=== PATIENT | female | born 1955 | race Caucasian/White ===

== ENCOUNTER 2017-04-23 10:18 | Emergency (ER) | payer MEDICARE, SELFPAY ==
[~2017-04-23] VITALS: Ht 162.6 cm; Wt 97.5 kg
[~2017-04-23 10:18] MED LIST: ACETAMINOPHEN500 MG PO; AEROECLIPSE II1 EACH MC; ALBU90OI INH; ALPR1 PO; Bactrim Ds Tab1 EACH PO; CEPH500 PO; CLON1 PO; CODGUAEL PO; Clotrimazole15 GM TOP; DIVA500EC PO; DOXY100 PO; Duoneb 2.5-0.5 M3 ML INH; ERYT1OIN RIGHTEYE; ESCI10 PO; ESCI20 PO; FENO48 PO; GABA100 PO; HYDACE5 PO; IBUP400 PO; IBUP600 PO; Keflex500 MG PO; MIRT15 PO; Neurontin 100100 MG PO; Norco 5-325 Ta1 EACH PO; PRED20 PO; Pedi-Dri 100,0060 GM TOP; Prednisone20 MG PO; RISP1 PO; RXHYDACE PO
[2017-04-23 11:28] LABS: Source, Urine Clean Catch
[2017-04-23 11:32] LABS: Bilirubin, Urine Neg (Neg); Blood, Urine 2+ (Neg); Glucose Qualitative, Urine Neg (Neg); Ketones, Urine 1+ (Neg); Leukocyte Esterase, Urine 3+ (Neg); Nitrite, Urine Neg (Neg); Protein, Urine 1+ (Neg); Specific Gravity, Urine 1.015 (1.003-1.022); Urobilinogen, Urine NORM (Normal)
[2017-04-23 11:51] LABS: Appearance, Urine Hazy (Clear); Color, Urine Yellow (P-Yellow)
[2017-04-23 11:59] LABS: White Blood Cells, Urine 25-50 /hpf (0-5)
[2017-04-23 12:00] LABS: Bacteria Mod /hpf; Mucus Light (0-Heavy); Renal Epithelial Rare /hpf (0-Rare); Squamous Epithelial Cells Mod /hpf (Few); Yeast/Fungi Urine Few /hpf
[2017-04-23 17:12] LABS: U Amphetamine Screen DETECTED; U Barbituate Screen Not Detected; U Benzodiazapine Screen DETECTED; U Buprenorphine Screen Not Detected; U Cannabinoids Screen Not Detected; U Cocaine Screen Not Detected; U Methadone Screen Not Detected; U Methamphetamine Screen DETECTED; U Opiates Screen Not Detected; U Oxycodone Screen Not Detected; U Phencyclidine Screen Not Detected; U Propoxyphene Screen Not Detected
[2017-09-20] MEDS ORDERED: PREG100 (17:23)
[2017-09-20] MEDS ORDERED: BACL10 (17:23)
[2017-09-20] MEDS ORDERED: POTCHL10ER (17:24)
[2017-09-20] MEDS ORDERED: Narcan 0.40.4 MG/ML (17:24)
[2017-09-20] MEDS ORDERED: DIAZ5 (17:24)
[2017-09-20] MEDS ORDERED: ALBU90OI (17:24)
[2017-09-20] MEDS ORDERED: HYDR-86 (17:24)
[2017-09-20] MEDS ORDERED: FURO20 (17:24)
[2017-09-20] MEDS ORDERED: LOPE2C (17:25)
[2017-09-20] MEDS ORDERED: CLON.1 (17:25)
[2017-09-20] MEDS ORDERED: Voltaren100 GM (17:25)
[2017-09-20] MEDS ORDERED: AMLO5 (17:25)
[2017-09-20] MEDS ORDERED: CLOBET30L (17:25)
[2017-09-20] MEDS ORDERED: CENTRUM SILVER1 EAC2 (17:26)
[2017-09-20] MEDS ORDERED: ESCI20 (17:26)
[2017-09-20] MEDS ORDERED: COMPAZINE10 MG PO (19:26)
== END 2017-04-23 12:55 | disposition home or self-care (01) ==
LOC: ER 10:18
PROVIDERS: Emergency Medicine
DX: F45.8 Other somatoform disorders (principal); E78.00 Pure hypercholesterolemia, unspecified; Z88.0 Allergy status to penicillin; Z88.1 Allergy status to other antibiotic agents; Z79.899 Other long term (current) drug therapy; Z87.891 Personal history of nicotine dependence
CPT/HCPCS: 81001; 87086; 99283

== ENCOUNTER 2017-05-02 12:01 | Emergency (ER) | payer MEDICARE, SELFPAY ==
[~2017-05-02] VITALS: Ht 162.6 cm; Wt 104.3 kg
[2017-05-02 12:45] LABS: BASOPHILS ABSOLUTE AUTO 0.07 K/mm3 (0.00-0.23); BASOPHILS PERCENT AUTO 1 % (0-2); EOSINOPHILS ABSOLUTE AUTO 0.19 K/mm3 (0.00-0.68); EOSINOPHILS PERCENT AUTO 2 % (0-6); Hematocrit 43.1 % (33.0-51.0); Hemoglobin 14.3 g/dL (11.5-16.0); IMMATURE GRAN ABSOLUTE AUTO 0.29 K/mm3 (0.00-0.10); IMMATURE GRAN PERCENT AUTO 4 % (0-1); LYMPHOCYTES ABSOLUTE AUTO 3.59 K/mm3 (0.84-5.20); LYMPHOCYTES PERCENT AUTO 45 % (21-46); MONOCYTES ABSOLUTE AUTO 0.85 K/mm3 (0.16-1.47); MONOCYTES PERCENT AUTO 11 % (4-13); Mean Corpuscular HGB 31.1 pg (26.0-34.0); Mean Corpuscular HGB Conc 33.2 g/dL (31.5-36.5); Mean Corpuscular Volume 94 fL (80-100); Mean Platelet Volume 9.3 fL (9.1-12.4); NEUTROPHILS ABSOLUTE AUTO 2.93 K/mm3 (1.96-9.15); NEUTROPHILS PERCENT AUTO 37 % (41-73); NRBC ABSOLUTE 0.02 K/mm3 (0.00-0.02); NRBC Auto 0.3 /100 WBC (0.0-0.2); Platelet Count 197 K/mm3 (150-400); RDW Coefficient Variation 11.8 % (11.7-14.2); White Blood Cell Count 7.92 K/mm3 (4.00-11.30)
[2017-05-02 12:59] LABS: Alanine Aminotransfer (ALT/SGP 38 U/L (12-78); Albumin, Blood 3.2 g/dL (3.4-5.0); Albumin/Globulin Ratio 0.9 (0.8-1.8); Alk Phos 119 U/L (50-136); Anion Gap 7 mmol/L (6-16); Aspartate Aminotrans (AST/SGOT 30 U/L (12-37); Bilirubin, Total 0.2 mg/dL (0.1-1.0); Blood Urea Nitrogen 20 mg/dL (8-24); Bun/Creatinine Ratio 29.7 (12.0-20.0); CO2, Blood 29 mmol/L (21-32); Calcium, Blood 8.7 mg/dL (8.5-10.1); Chloride, Blood 107 mmol/L (98-108); Creatinine, Blood 0.67 mg/dL (0.40-1.00); Globulin, Blood 3.5 g/dL (2.2-4.0); Glomerular Filtration Rate >60 (60-); Glucose, Blood 124 mg/dL (70-99); Potassium, Blood 4.2 mmol/L (3.5-5.5); Sodium, Blood 143 mmol/L (136-145); Total Protein, Blood 6.7 g/dL (6.4-8.2)
[2017-05-02 13:05] LABS: International Normalized Ratio 0.97; Prothrombin Time Results 10.1 Sec (9.7-11.5)
[2017-05-02 14:59] LABS: Source, Urine Clean Catch
[2017-05-02 15:01] LABS: Appearance, Urine Clear (Clear); Bilirubin, Urine Neg (Neg); Blood, Urine Neg (Neg); Color, Urine Yellow (P-Yellow); Glucose Qualitative, Urine Neg (Neg); Ketones, Urine 1+ (Neg); Leukocyte Esterase, Urine 2+ (Neg); Nitrite, Urine Neg (Neg); Protein, Urine 1+ (Neg); Urobilinogen, Urine NORM (Normal)
[2017-05-02 15:14] LABS: Red Blood Cells, Urine Not Seen /hpf (0-2); Squamous Epithelial Cells Many /hpf (Few)
[2017-05-02 15:15] LABS: Bacteria Mod /hpf
[2017-05-02 15:33] LABS: Troponin I <0.015 ng/mL (0.000-0.040)
[2017-05-02] MEDS ORDERED: Bactrim 400-801 EACH PO (16:50)
[2017-09-20] MEDS ORDERED: PREG100 (17:23)
[2017-09-20] MEDS ORDERED: BACL10 (17:23)
[2017-09-20] MEDS ORDERED: FURO20 (17:24)
[2017-09-20] MEDS ORDERED: HYDR-86 (17:24)
[2017-09-20] MEDS ORDERED: Narcan 0.40.4 MG/ML (17:24)
[2017-09-20] MEDS ORDERED: POTCHL10ER (17:24)
[2017-09-20] MEDS ORDERED: DIAZ5 (17:24)
[2017-09-20] MEDS ORDERED: ALBU90OI (17:24)
[2017-09-20] MEDS ORDERED: LOPE2C (17:25)
[2017-09-20] MEDS ORDERED: CLON.1 (17:25)
[2017-09-20] MEDS ORDERED: CLOBET30L (17:25)
[2017-09-20] MEDS ORDERED: Voltaren100 GM (17:25)
[2017-09-20] MEDS ORDERED: AMLO5 (17:25)
[2017-09-20] MEDS ORDERED: ESCI20 (17:26)
[2017-09-20] MEDS ORDERED: CENTRUM SILVER1 EAC2 (17:26)
[2017-09-20] MEDS ORDERED: COMPAZINE10 MG PO (19:26)
== END 2017-05-02 17:29 | disposition home or self-care (01) ==
LOC: ER 12:01
PROVIDERS: Emergency Medicine
DX: S50.11XA Contusion of right forearm, initial encounter (principal); F15.10 Other stimulant abuse, uncomplicated; E78.00 Pure hypercholesterolemia, unspecified; Z87.891 Personal history of nicotine dependence; W19.XXXA Unspecified fall, initial encounter
CPT/HCPCS: 36415; 70450; 80053; 81000; 81001; 84484; 85025; 85610; 85730; 87086; 93005; 93010; 96360; 99284; J7030

== ENCOUNTER → 2017-05-07 | Outpatient (CLI) | payer MEDICARE, OTHER ==
[~2017-05-07] MED LIST changes: +ACET325 PO; +ALBU90OI; +AMLO5; +AMLO5 PO; +Alprazolam2 MG PO; +BACL10; +Bactrim 400-801 EACH PO; +CENTRUM SILVER1 EAC2; +CENTRUM SILVER1 EAC2 PO; +CLIN300 PO; +CLOBET30L; +CLON.1; +CLON.1 PO; +COMPAZINE10 MG PO; +Catapres0.1 MG PO; +Culturelle1 CAP PO; +DIAZ5; +ESCI20; +FURO20; +HYDR-86; +IBUP800 PO; +LOPE2C; +LOPE2C PO; +Narcan 0.40.4 MG/ML; +OXYC5 PO; +POTCHL10ER; +PREG100; +PREG100 PO; +VOLTAREN TOP; +Voltaren100 GM
== END ==
LOC: LAB SRC 07:30
DX: R19.7 Diarrhea, unspecified (principal)
CPT/HCPCS: 87177; 87209

== ENCOUNTER 2017-05-26 20:49 | Inpatient (IN) | payer MEDICARE ==
[~2017-05-26] VITALS: Ht 165.1 cm; Wt 104.5 kg
[~2017-05-26 20:49] MED LIST changes: -ACET325 PO; -ALBU90OI; -AMLO5; -AMLO5 PO; -Alprazolam2 MG PO; -BACL10; -CENTRUM SILVER1 EAC2; -CENTRUM SILVER1 EAC2 PO; -CLIN300 PO; -CLOBET30L; -CLON.1; -CLON.1 PO; -COMPAZINE10 MG PO; -Catapres0.1 MG PO; -Culturelle1 CAP PO; -DIAZ5; -ESCI20; -FURO20; -HYDR-86; -IBUP800 PO; -LOPE2C; -LOPE2C PO; -Narcan 0.40.4 MG/ML; -OXYC5 PO; -POTCHL10ER; -PREG100; -PREG100 PO; -VOLTAREN TOP; -Voltaren100 GM
[2017-05-26 23:08] LABS: BASOPHILS ABSOLUTE AUTO 0.05 K/mm3 (0.00-0.23); BASOPHILS PERCENT AUTO 0 % (0-2); EOSINOPHILS ABSOLUTE AUTO 0.07 K/mm3 (0.00-0.68); EOSINOPHILS PERCENT AUTO 0 % (0-6); Hematocrit 39.6 % (33.0-51.0); Hemoglobin 13.3 g/dL (11.5-16.0); IMMATURE GRAN ABSOLUTE AUTO 0.07 K/mm3 (0.00-0.10); IMMATURE GRAN PERCENT AUTO 0 % (0-1); LYMPHOCYTES ABSOLUTE AUTO 3.04 K/mm3 (0.84-5.20); LYMPHOCYTES PERCENT AUTO 18 % (21-46); MONOCYTES ABSOLUTE AUTO 1.64 K/mm3 (0.16-1.47); MONOCYTES PERCENT AUTO 10 % (4-13); Mean Corpuscular HGB Conc 33.6 g/dL (31.5-36.5); Mean Corpuscular Volume 95 fL (80-100); NEUTROPHILS ABSOLUTE AUTO 12.19 K/mm3 (1.96-9.15); NEUTROPHILS PERCENT AUTO 72 % (41-73); Platelet Count 160 K/mm3 (150-400); RDW Coefficient Variation 12.1 % (11.7-14.2); RDW Standard Deviation 42.3 fL (35.1-46.3); Red Blood Cell Count 4.16 M/mm3 (3.80-5.20); White Blood Cell Count 17.06 K/mm3 (4.00-11.30)
[2017-05-26 23:27] LABS: Alanine Aminotransfer (ALT/SGP 63 U/L (12-78); Albumin, Blood 3.1 g/dL (3.4-5.0); Albumin/Globulin Ratio 0.9 (0.8-1.8); Alk Phos 90 U/L (50-136); Anion Gap 10 mmol/L (6-16); Aspartate Aminotrans (AST/SGOT 39 U/L (12-37); Bilirubin, Total 0.4 mg/dL (0.1-1.0); Blood Urea Nitrogen 16 mg/dL (8-24); Bun/Creatinine Ratio 25.1 (12.0-20.0); CO2, Blood 25 mmol/L (21-32); Calcium, Blood 8.4 mg/dL (8.5-10.1); Chloride, Blood 101 mmol/L (98-108); Creatinine, Blood 0.64 mg/dL (0.40-1.00); Globulin, Blood 3.3 g/dL (2.2-4.0); Glomerular Filtration Rate >60 (60-); Glucose, Blood 129 mg/dL (70-99); Potassium, Blood 3.7 mmol/L (3.5-5.5); Sodium, Blood 136 mmol/L (136-145); Total Protein, Blood 6.4 g/dL (6.4-8.2)
[2017-05-27 01:20] LABS: International Normalized Ratio 1.04; Prothrombin Time Results 10.8 Sec (9.7-11.5)
[2017-05-27 04:45] LABS: BASOPHILS ABSOLUTE AUTO 0.04 K/mm3 (0.00-0.23); BASOPHILS PERCENT AUTO 0 % (0-2); EOSINOPHILS ABSOLUTE AUTO 0.12 K/mm3 (0.00-0.68); EOSINOPHILS PERCENT AUTO 1 % (0-6); Hematocrit 38.3 % (33.0-51.0); Hemoglobin 12.6 g/dL (11.5-16.0); IMMATURE GRAN ABSOLUTE AUTO 0.04 K/mm3 (0.00-0.10); IMMATURE GRAN PERCENT AUTO 0 % (0-1); LYMPHOCYTES ABSOLUTE AUTO 2.05 K/mm3 (0.84-5.20); LYMPHOCYTES PERCENT AUTO 16 % (21-46); MONOCYTES ABSOLUTE AUTO 1.21 K/mm3 (0.16-1.47); MONOCYTES PERCENT AUTO 9 % (4-13); Mean Corpuscular HGB 31.3 pg (26.0-34.0); Mean Corpuscular HGB Conc 32.9 g/dL (31.5-36.5); Mean Corpuscular Volume 95 fL (80-100); Mean Platelet Volume 9.9 fL (9.1-12.4); NEUTROPHILS ABSOLUTE AUTO 9.54 K/mm3 (1.96-9.15); NEUTROPHILS PERCENT AUTO 73 % (41-73); Platelet Count 145 K/mm3 (150-400); RDW Coefficient Variation 12.2 % (11.7-14.2); RDW Standard Deviation 42.6 fL (35.1-46.3); Red Blood Cell Count 4.02 M/mm3 (3.80-5.20)
[2017-05-27 05:05] LABS: Alanine Aminotransfer (ALT/SGP 50 U/L (12-78); Albumin, Blood 2.7 g/dL (3.4-5.0); Albumin/Globulin Ratio 0.9 (0.8-1.8); Alk Phos 84 U/L (50-136); Anion Gap 8 mmol/L (6-16); Aspartate Aminotrans (AST/SGOT 30 U/L (12-37); Bilirubin, Total 0.4 mg/dL (0.1-1.0); Blood Urea Nitrogen 16 mg/dL (8-24); Bun/Creatinine Ratio 21.5 (12.0-20.0); CO2, Blood 29 mmol/L (21-32); Calcium, Blood 7.9 mg/dL (8.5-10.1); Chloride, Blood 103 mmol/L (98-108); Creatinine, Blood 0.74 mg/dL (0.40-1.00); Glomerular Filtration Rate >60 (60-); Glucose, Blood 146 mg/dL (70-99); Potassium, Blood 3.3 mmol/L (3.5-5.5); Sodium, Blood 140 mmol/L (136-145); Total Protein, Blood 5.7 g/dL (6.4-8.2)
[2017-05-27 14:54] LABS: U Amphetamine Screen Not Detected; U Barbituate Screen Not Detected; U Benzodiazapine Screen DETECTED; U Buprenorphine Screen Not Detected; U Cannabinoids Screen Not Detected; U Cocaine Screen Not Detected; U Methadone Screen Not Detected; U Methamphetamine Screen DETECTED; U Opiates Screen Not Detected; U Oxycodone Screen Not Detected; U Phencyclidine Screen Not Detected; U Propoxyphene Screen Not Detected
[2017-05-28 21:20] LABS: Vancomycin, Trough 11.3 ug/mL (5.0-10.0)
[2017-05-29 04:58] LABS: Anion Gap 6 mmol/L (6-16); Blood Urea Nitrogen 14 mg/dL (8-24); Bun/Creatinine Ratio 20.6 (12.0-20.0); CO2, Blood 33 mmol/L (21-32); Calcium, Blood 8.3 mg/dL (8.5-10.1); Chloride, Blood 102 mmol/L (98-108); Creatinine, Blood 0.68 mg/dL (0.40-1.00); Glomerular Filtration Rate >60 (60-); Glucose, Blood 106 mg/dL (70-99); Potassium, Blood 3.3 mmol/L (3.5-5.5); Sodium, Blood 141 mmol/L (136-145)
[2017-05-29] MEDS ORDERED: CLON.1 PO (07:53)
[2017-05-29] MEDS ORDERED: Alprazolam2 MG PO (07:53)
[2017-05-29] MEDS ORDERED: PREG100 PO (07:59)
[2017-05-29] MEDS ORDERED: CENTRUM SILVER1 EAC2 PO (10:49)
[2017-05-29] MEDS ORDERED: LOPE2C PO (10:49)
[2017-05-29] MEDS ORDERED: IBUP800 PO (10:49)
[2017-05-29] MEDS ORDERED: VOLTAREN TOP (10:51)
[2017-05-29 11:13] LABS: Source, Urine Clean Catch
[2017-05-29 11:17] LABS: Bilirubin, Urine Neg (Neg); Blood, Urine 1+ (Neg); Glucose Qualitative, Urine Neg (Neg); Ketones, Urine 1+ (Neg); Leukocyte Esterase, Urine 1+ (Neg); Nitrite, Urine Neg (Neg); Protein, Urine Neg (Neg); Urobilinogen, Urine NORM (Normal)
[2017-05-29 11:25] LABS: Appearance, Urine Clear (Clear); Color, Urine Yellow (P-Yellow)
[2017-05-29 11:32] LABS: Bacteria Few /hpf; Red Blood Cells, Urine Not Seen /hpf (0-2); Squamous Epithelial Cells Mod /hpf (Few); White Blood Cells, Urine 0-2 /hpf (0-5)
[2017-05-30 09:27] LABS: Anion Gap 6 mmol/L (6-16); Blood Urea Nitrogen 18 mg/dL (8-24); Bun/Creatinine Ratio 26.2 (12.0-20.0); CO2, Blood 30 mmol/L (21-32); Calcium, Blood 8.6 mg/dL (8.5-10.1); Chloride, Blood 105 mmol/L (98-108); Creatinine, Blood 0.69 mg/dL (0.40-1.00); Glomerular Filtration Rate >60 (60-); Glucose, Blood 107 mg/dL (70-99); Potassium, Blood 3.9 mmol/L (3.5-5.5); Sodium, Blood 141 mmol/L (136-145)
[2017-05-30 09:29] LABS: Vancomycin, Trough 13.1 ug/mL (5.0-10.0)
[2017-06-01 05:04] LABS: BASOPHILS ABSOLUTE AUTO 0.07 K/mm3 (0.00-0.23); BASOPHILS PERCENT AUTO 1 % (0-2); EOSINOPHILS ABSOLUTE AUTO 0.22 K/mm3 (0.00-0.68); EOSINOPHILS PERCENT AUTO 3 % (0-6); Hematocrit 35.9 % (33.0-51.0); Hemoglobin 11.7 g/dL (11.5-16.0); IMMATURE GRAN ABSOLUTE AUTO 0.32 K/mm3 (0.00-0.10); IMMATURE GRAN PERCENT AUTO 4 % (0-1); LYMPHOCYTES ABSOLUTE AUTO 2.61 K/mm3 (0.84-5.20); LYMPHOCYTES PERCENT AUTO 35 % (21-46); MONOCYTES ABSOLUTE AUTO 0.86 K/mm3 (0.16-1.47); MONOCYTES PERCENT AUTO 12 % (4-13); Mean Corpuscular HGB 31.3 pg (26.0-34.0); Mean Corpuscular HGB Conc 32.6 g/dL (31.5-36.5); Mean Corpuscular Volume 96 fL (80-100); Mean Platelet Volume 9.9 fL (9.1-12.4); NEUTROPHILS ABSOLUTE AUTO 3.39 K/mm3 (1.96-9.15); NEUTROPHILS PERCENT AUTO 46 % (41-73); Platelet Count 171 K/mm3 (150-400); RDW Coefficient Variation 12.1 % (11.7-14.2); RDW Standard Deviation 42.3 fL (35.1-46.3); Red Blood Cell Count 3.74 M/mm3 (3.80-5.20); White Blood Cell Count 7.47 K/mm3 (4.00-11.30)
[2017-06-02] MEDS ORDERED: ACET325 PO (09:48)
[2017-06-02] MEDS ORDERED: Catapres0.1 MG PO (09:49)
[2017-06-02] MEDS ORDERED: AMLO5 PO (09:49)
[2017-06-02] MEDS ORDERED: OXYC5 PO (09:50)
[2017-06-02] MEDS ORDERED: CLIN300 PO (09:51)
[2017-06-02] MEDS ORDERED: Culturelle1 CAP PO (09:51)
== END 2017-06-02 13:30 | disposition home health service (06) | DRG 602 ==
LOC: ER 20:49 → EOR 05-27 00:54 → ERHOLD 05-27 00:54 → MEDS 05-27 00:54 → EDBEDREQ 05-27 03:11 → MEDS 05-27 12:35 → ENPENDDIS 06-02 09:30 → MEDS 06-02 13:30
PROVIDERS: Emergency Medicine; Hospitalist; Internal Medicine; Orthopaedic Surgery
PROC: 0JDG3ZZ Extraction of Right Lower Arm Subcutaneous Tissue and Fascia, Percutaneous Approach (ICD-10-PCS; 2017-05-28)
PROC: 0X9 Anatomical Regions, Upper Extremities, Drainage (ICD-10-PCS; principal; 2017-05-28 13:00)
DX: L03.113 Cellulitis of right upper limb (principal); G92 Toxic encephalopathy; E11.65 Type 2 diabetes mellitus with hyperglycemia; E11.40 Type 2 diabetes mellitus with diabetic neuropathy, unspecified; L02.413 Cutaneous abscess of right upper limb; B95.61 Methicillin susceptible Staphylococcus aureus infection as the cause of diseases classified elsewhere; I10 Essential (primary) hypertension; F41.9 Anxiety disorder, unspecified; R45.1 Restlessness and agitation; E78.00 Pure hypercholesterolemia, unspecified; G89.29 Other chronic pain; M54.9 Dorsalgia, unspecified; F19.10 Other psychoactive substance abuse, uncomplicated; Z88.1 Allergy status to other antibiotic agents; Z88.0 Allergy status to penicillin; Z79.899 Other long term (current) drug therapy
CPT/HCPCS: 36415; 73080; 73201; 80048; 80053; 80202; 81001; 85025; 85610; 87070; 87075; 87077; 87147; 87186; 87205; 96365; 96372; 96375; 96376; 99285; J0690; J0692; J1650; J1885; J2060; J2250; J2370; J2405; J3010; J3370; J7030; J7050; J7120; Q9967

== ENCOUNTER → 2017-09-09 | Outpatient (CLI) | payer MEDICARE, SELFPAY ==
[~2017-09-09] MED LIST changes: +ACET325 PO; +AMLO5 PO; +Alprazolam2 MG PO; +CENTRUM SILVER1 EAC2 PO; +CLIN300 PO; +CLON.1 PO; +Catapres0.1 MG PO; +Culturelle1 CAP PO; +IBUP800 PO; +LOPE2C PO; +OXYC5 PO; +PREG100 PO; +VOLTAREN TOP
== END | disposition home or self-care (01) ==
LOC: LAB SRC 16:45 → LAB SHORT 16:45
DX: F43.10 Post-traumatic stress disorder, unspecified (principal); F99 Mental disorder, not otherwise specified
CPT/HCPCS: G0480

== ENCOUNTER 2018-04-24 14:56 | Emergency (ER) | payer MEDICARE ==
[~2018-04-24] VITALS: Ht 162.6 cm; Wt 116.1 kg
[~2018-04-24 14:56] MED LIST changes: +ALBU90OI; +AMLO5; +BACL10; +CENTRUM SILVER1 EAC2; +CLOBET30L; +CLON.1; +COMPAZINE10 MG PO; +DIAZ5; +ESCI20; +FURO20; +HYDR-86; +LOPE2C; +Narcan 0.40.4 MG/ML; +POTCHL10ER; +PREG100; +Voltaren100 GM
[2018-04-24] MEDS ORDERED: Bactrim Ds Tab1 EACH PO (15:54)
[2018-04-24] MEDS ORDERED: Sudogest30 MG PO (15:54)
[2018-04-24] MEDS ORDERED: Mupirocin22 GM TOP (15:54)
== END 2018-04-24 16:05 | disposition home or self-care (01) ==
LOC: ER 14:56
DX: J34.0 Abscess, furuncle and carbuncle of nose (principal); E78.00 Pure hypercholesterolemia, unspecified; Z88.0 Allergy status to penicillin; Z88.8 Allergy status to other drugs, medicaments and biological substances; Z88.5 Allergy status to narcotic agent; Z79.899 Other long term (current) drug therapy; Z87.891 Personal history of nicotine dependence
CPT/HCPCS: 99282

== ENCOUNTER 2022-06-27 07:23 | Day surgery (SDC) | payer MEDICARE ==
[~2022-06-27] VITALS: Ht 165.1 cm; Wt 127.9 kg
[~2022-06-27 07:23] MED LIST changes: +Mupirocin22 GM TOP; +Sudogest30 MG PO
[2022-06-27] MEDS ORDERED: CATAPRES0.1 MG PO (08:32)
[2022-06-27] MEDS ORDERED: RISPERIDONE2 M9 PO (08:34)
[2022-06-27] MEDS ORDERED: PROC5 PO (08:34)
[2022-06-27] MEDS ORDERED: OXYB5 PO (08:34)
[2022-06-27] MEDS ORDERED: TOPI50 PO (08:35)
[2022-06-27] MEDS ORDERED: BACLOFEN5 M1 PO (08:35)
--- NOTE | 2022-06-27 09:21 | NUR ---
06/27/22 0921 La Nena Carmen 0827, YESENIA 0828 PER ORDERS
[2022-06-27 09:57] VITALS: BP 168/90
--- NOTE | 2022-06-27 11:02 | NUR ---
06/27/[address] CONSULTED REGARDING PT'S HYPERTENSION AND APPROVED DISCHARGE. PT INSTRUCTED TO MONITOR BLOOD PRESSURE AT HOME AND FOLLOW UP WITH PCP.
== END 2022-06-27 10:20 | disposition home or self-care (01) ==
LOC: ORSCSDS 07:23
PROVIDERS: Ophthalmology
PROC: 08RK3JZ Replacement of Left Lens with Synthetic Substitute, Percutaneous Approach (ICD-10-PCS; principal; 2022-06-27 09:00)
DX: E11.36 Type 2 diabetes mellitus with diabetic cataract (principal); H25.13 Age-related nuclear cataract, bilateral; I10 Essential (primary) hypertension; E11.9 Type 2 diabetes mellitus without complications; E78.5 Hyperlipidemia, unspecified; G47.33 Obstructive sleep apnea (adult) (pediatric); E66.01 Morbid (severe) obesity due to excess calories; Z68.42 Body mass index [BMI] 45.0-49.9, adult; Z79.84 Long term (current) use of oral hypoglycemic drugs
CPT/HCPCS: 82947; J2001; J2250; J3010; J3301; J7040; V2632

== ENCOUNTER 2022-07-18 07:12 | Day surgery (SDC) | payer MEDICARE ==
[~2022-07-18] VITALS: Ht 162.6 cm; Wt 124.5 kg
[~2022-07-18 07:12] MED LIST changes: +BACLOFEN5 M1 PO; +CATAPRES0.1 MG PO; +OXYB5 PO; +PROC5 PO; +RISPERIDONE2 M9 PO; +TOPI50 PO
--- NOTE | 2022-07-18 07:47 | NUR ---
07/18/22 0747 Ritu Goncalves AT 0746 PLENEERAJET AT [phone]
[2022-07-18 07:55] VITALS: BP 212/102
--- NOTE | 2022-07-18 09:27 | NUR ---
07/18/22 0927 PALOMO GARCIA PT C/O CHRONIC PAIN IN LOWER BACK. REPORTED PAIN AT 8/10 UPON ADMISSION TO PRE-OP, WHICH REMAINS CONSISTENT NOW. PO TYLENOL ORDERED.
== END 2022-07-18 09:38 | disposition home or self-care (01) ==
LOC: ORSCSDS 07:12
PROVIDERS: Ophthalmology
PROC: 08DJ3ZZ Extraction of Right Lens, Percutaneous Approach (ICD-10-PCS; principal; 2022-07-18 08:30)
DX: E11.36 Type 2 diabetes mellitus with diabetic cataract (principal); H25.11 Age-related nuclear cataract, right eye; I10 Essential (primary) hypertension; G47.33 Obstructive sleep apnea (adult) (pediatric); E66.9 Obesity, unspecified; Z68.42 Body mass index [BMI] 45.0-49.9, adult; Z79.84 Long term (current) use of oral hypoglycemic drugs; Z79.899 Other long term (current) drug therapy
CPT/HCPCS: 82947; A9270; J2250; J3010; J3301; J7040; V2632

== ENCOUNTER → 2024-06-30 | Outpatient (CLI) | payer MEDICARE | END | disposition home or self-care (01) | LOC: LAB SHORT 15:15 → LAB 15:15 | DX: N39.0 Urinary tract infection, site not specified (principal) | CPT/HCPCS: 87086 ==

== ENCOUNTER → 2024-07-09 | Outpatient (CLI) | payer MEDICARE ==
[2024-07-09 15:02] LABS: Albumin, Blood 3.3 g/dL (3.4-5.0); Albumin/Globulin Ratio 1.1 (0.8-1.8); Bilirubin, Total 0.3 mg/dL (0.1-1.0); Bun/Creatinine Ratio 16.3 (12.0-20.0); Calcium, Blood 8.8 mg/dL (8.5-10.1); Creatinine, Blood 0.92 mg/dL (0.40-1.00); Globulin, Blood 3.1 g/dL (2.2-4.0); Potassium, Blood 4.5 mmol/L (3.5-5.5); Total Protein, Blood 6.4 g/dL (6.4-8.2)
[2024-07-09 16:58] LABS: BASOPHILS ABSOLUTE AUTO 0.03 K/mm3 (0.00-0.23); BASOPHILS PERCENT AUTO 0 % (0-2); EOSINOPHILS ABSOLUTE AUTO 0.13 K/mm3 (0.00-0.68); EOSINOPHILS PERCENT AUTO 2 % (0-6); Hematocrit 41.8 % (33.0-51.0); Hemoglobin 13.9 g/dL (11.5-16.0); IMMATURE GRAN ABSOLUTE AUTO 0.04 K/mm3 (0.00-0.10); IMMATURE GRAN PERCENT AUTO 1 % (0-1); LYMPHOCYTES ABSOLUTE AUTO 2.68 K/mm3 (0.84-5.20); LYMPHOCYTES PERCENT AUTO 36 % (21-46); MONOCYTES ABSOLUTE AUTO 0.82 K/mm3 (0.16-1.47); MONOCYTES PERCENT AUTO 11 % (4-13); Mean Corpuscular HGB 31.3 pg (26.0-34.0); Mean Corpuscular HGB Conc 33.3 g/dL (31.5-36.5); Mean Corpuscular Volume 94 fL (80-100); NEUTROPHILS PERCENT AUTO 50 % (41-73); RDW Coefficient Variation 11.9 % (11.7-14.2); RDW Standard Deviation 40.8 fL (35.1-46.3); Red Blood Cell Count 4.44 M/mm3 (3.80-5.20)
[2024-07-09 17:35] LABS: Platelet Count 69 K/mm3 (150-400)
== END ==
LOC: LAB SHORT 14:47 → LAB 14:47
PROVIDERS: Chiropractor
DX: R10.9 Unspecified abdominal pain (principal); R31.9 Hematuria, unspecified; R73.9 Hyperglycemia, unspecified
CPT/HCPCS: 80053; 83036; 85025; 87086

== ENCOUNTER → 2024-07-29 | Outpatient (CLI) | payer MEDICARE | LOC: LAB 14:53 → LAB SHORT 14:53 | DX: N39.0 Urinary tract infection, site not specified (principal) | CPT/HCPCS: 87086 ==